=== PATIENT | male | born 1955 | race Hispanic/Latino ===

== ENCOUNTER 2021-11-28 17:36 | Inpatient (IN) | payer OTHER, SELFPAY ==
[2021-11-28] MEDS ORDERED: Boostrix 0.5 ML (Tdap) VIAL ONE (17:45)
[2021-11-28] MEDS ORDERED: Fentanyl 100 MCG/2 ML VIAL ONE ×3 (17:45→21:40)
[2021-11-28] MEDS ORDERED: Cyclobenzaprine 10 MG TAB PO PRN (17:51)
[2021-11-28] MEDS ORDERED: hydrALAZINE 20 MG/ML VIAL SLOW IVP PRN (17:51)
[2021-11-28] MEDS ORDERED: traMADol HCl 50 MG TAB PO PRN (17:51)
[2021-11-28] MEDS ORDERED: Promethazine HCl 25 MG/ML VIAL IM PRN ×2 (17:52→21:47)
[2021-11-28] MEDS ORDERED: Morphine 2 MG/ML VIAL SLOW IVP PRN (17:52)
[2021-11-28] MEDS ORDERED: Ondansetron PF 4 MG/2 ML Vial IVP PRN (17:52)
[2021-11-28 18:01] LABS: #Eosinphils 0.1 thou/uL (0.0-0.7); #Lymphocytes 2.4 thou/uL (1.20-3.40); #Monocytes 0.7 thou/uL (0.11-0.59); #Neutrophils 11.8 thou/uL (1.40-6.50); %Basophils 0.1 % (0.0-1.0); %Eosinophils 0.4 % (0.0-10.0); %Lymphocytes 15.9 % (21.0-51.0); %Monocytes 4.7 % (0.0-10.0); %Neutrophils 78.8 % (42.0-75.0); Mean Corpuscular HGB CONC 34.3 g/dL (32.0-36.0); Mean Corpuscular Hemoglobin 31.4 pg (27.0-31.0); Mean Corpuscular Volume 91.6 fL (78.0-98.0); Platelet Count 242 thou/uL (130-400); RBC Distribution Width 11.3 % (11.5-14.5); Red Blood Cell (RBC) Count 4.45 mill/uL (4.70-6.10)
[2021-11-28] MEDS ORDERED: CEFAZOLIN 2 GM VIAL ONE ×2 (18:04→19:49)
[2021-11-28] MEDS ORDERED: TETANUS, DIPHTHERIA TOX,ADULT (TDVAX) 0.5 ML VIAL IM ONE (18:06)
[2021-11-28 18:25] LABS: ALT (SGPT) 17 U/L (8-55); AST (SGOT) 21 U/L (5-34); Albumin 4.4 g/dL (3.4-4.8); Alkaline Phosphatase 72 U/L (40-110); Anion Gap 16 mmol/L (10-20); BUN (Urea Nitrogen) 21 mg/dL (8.4-25.7); Bilirubin, Total 0.4 mg/dL (0.2-1.2); Calc. Creatinine Clearance 0 mL/min (70-130); Calcium 9.4 mg/dL (7.8-10.44); Carbon Dioxide 21 mmol/L (23-31); Chloride 108 mmol/L (98-107); Estimated GFR 60; Globulin 2.6 g/dL (2.4-3.5); Glucose 171 mg/dL (80-115); Potassium 3.9 mmol/L (3.5-5.1); Sodium 141 mmol/L (136-145)
[2021-11-28 19:11] LABS: SARS-CoV-2 NAA Rapid Test Not Detected (NotDetected)
[2021-11-28] MEDS ORDERED: fentaNYL Citrate/PF 100 MCG/2 ML SYRINGE ONE (19:34)
[2021-11-28] MEDS ORDERED: Succinylcholine 200 MG/10 ml SYRINGE FS ONE (19:49)
[2021-11-28] MEDS ORDERED: Rocuronium Bromide 10 MG/ML (10ML VIAL) ONE (19:49)
[2021-11-28] MEDS ORDERED: Dexamethasone 20 MG/5 ML VIAL ONE (19:49)
[2021-11-28] MEDS ORDERED: Neostigmine Methylsulfate 3 MG/3 ML SYRINGE ONE (19:49)
[2021-11-28] MEDS ORDERED: Sodium Chloride 0.9% 100 ML ONE (19:49)
[2021-11-28] MEDS ORDERED: Phenylephrine 10 MG/ML VIAL ONE (19:49)
[2021-11-28] MEDS ORDERED: Ondansetron PF 4 MG/2 ML Vial ONE (19:49)
[2021-11-28] MEDS ORDERED: Lidocaine 1% PF 5 ML VIAL ONE (19:49)
[2021-11-28] MEDS ORDERED: ePHEDrine 50 MG/ML VIAL ONE (19:49)
[2021-11-28] MEDS ORDERED: Glycopyrrolate 0.2 MG/ML 5 ML SYRINGE ONE (19:49)
[2021-11-28] MEDS ORDERED: PROPOFOL 200 MG/20 ML VIAL ONE (19:49)
[2021-11-28] MEDS ORDERED: Silver Sulfadiazine 50 GM TUBE TOP SCH (21:00)
[2021-11-28] MEDS ORDERED: HYDROmorphone 2 MG/ML VIAL SLOW IVP PRN (21:47)
[2021-11-28] MEDS ORDERED: Ondansetron HCl/PF 4 MG/2 ML Vial IVP PRN (21:47)
[2021-11-28] MEDS ORDERED: Ketorolac Tromethamine 30 MG/ML VIAL IVP PRN (21:47)
[2021-11-28] MEDS ORDERED: Promethazine HCl 25 MG/ML VIAL IVPB PRN (21:47)
[2021-11-28] MEDS ORDERED: Ketorolac Tromethamine 30 MG/ML VIAL ONE (21:52)
[2021-11-28] MEDS ORDERED: ceFAZolin 2 GM/Dextrose 50 ML 2 GM in Premix Bag 1 BAG IVPB SCH (22:00)
[2021-11-28] MEDS ORDERED: HYDROmorphone 2 MG/ML VIAL ONE (22:13)
[2021-11-28] MEDS: Sodium Chloride 0.9% 1,000 ML IV SCH (23:53)
[2021-11-28] MEDS: Senokot S 8.6-50 MG TAB PO SCH (23:54)
[2021-11-28] MEDS: Gabapentin 300 MG CAP PO SCH (23:54)
[2021-11-28] MEDS: Famotidine 20 MG TAB PO SCH (23:54)
[2021-11-28] MEDS: traMADol HCl 50 MG TAB PO SCH (23:54)
[2021-11-29 00:01] VITALS: BMI 28.9
[2021-11-29] MEDS: Ketorolac Tromethamine 30 MG/ML VIAL IVP SCH ×5 (00:51→23:55)
[2021-11-29] MEDS: CEFAZOLIN 2 GM in Sodium Chloride 0.9% 100 ML IVPB SCH ×3 (00:52→18:33)
[2021-11-29] MEDS: Acetaminophen 500 MG TAB PO SCH ×5 (00:52→23:54)
[2021-11-29] MEDS: Sodium Chloride 0.9% 1,000 ML IV SCH ×4 (00:52→20:20)
[2021-11-29] MEDS: traMADol HCl 50 MG TAB PO SCH ×5 (00:52→23:54)
[2021-11-29 06:18] LABS: #Lymphocytes 0.8 thou/uL (1.20-3.40); #Monocytes 0.4 thou/uL (0.11-0.59); #Neutrophils 5.8 thou/uL (1.40-6.50); %Basophils 0.1 % (0.0-1.0); %Eosinophils 0.2 % (0.0-10.0); %Lymphocytes 11.2 % (21.0-51.0); %Monocytes 5.2 % (0.0-10.0); %Neutrophils 83.3 % (42.0-75.0); Hemoglobin 10.8 g/dL (14.0-18.0); Mean Corpuscular HGB CONC 33.7 g/dL (32.0-36.0); Mean Corpuscular Hemoglobin 31.6 pg (27.0-31.0); Mean Corpuscular Volume 93.7 fL (78.0-98.0); Mean Platelet Volume 7.3 fL (7.4-10.4); Platelet Count 209 thou/uL (130-400); RBC Distribution Width 11.4 % (11.5-14.5); Red Blood Cell (RBC) Count 3.43 mill/uL (4.70-6.10); White Blood Cell (WBC) Count 6.9 thou/uL (4.8-10.8)
[2021-11-29 06:35] LABS: Anion Gap 14 mmol/L (10-20); BUN (Urea Nitrogen) 21 mg/dL (8.4-25.7); CK (CPK) 1158 U/L (30-200); Calc. Creatinine Clearance 82 mL/min (70-130); Calcium 8.2 mg/dL (7.8-10.44); Carbon Dioxide 19 mmol/L (23-31); Chloride 110 mmol/L (98-107); Estimated GFR 85; Glucose 213 mg/dL (80-115); Phosphorus 3.1 mg/dL (2.3-4.7); Potassium 4.5 mmol/L (3.5-5.1); Sodium 138 mmol/L (136-145)
[2021-11-29] MEDS ORDERED: Enoxaparin Sodium 40 MG/0.4 ML SYRINGE SC SCH (09:00)
[2021-11-29] MEDS: Famotidine 20 MG TAB PO SCH ×2 (09:09→20:22)
[2021-11-29] MEDS: Gabapentin 300 MG CAP PO SCH ×3 (09:09→20:21)
[2021-11-29] MEDS: Senokot S 8.6-50 MG TAB PO SCH ×2 (09:10→20:22)
[2021-11-29] MEDS: Polyethylene Glycol 3350 17 GM Packet PO SCH (09:10)
[2021-11-29] MEDS ORDERED: Tamsulosin HCl 0.4 MG CAP PO SCH (13:00)
[2021-11-29] MEDS ORDERED: Bisacodyl 10 MG SUPP PR SCH (13:00)
[2021-11-30] MEDS: Sodium Chloride 0.9% 1,000 ML IV SCH (01:57)
[2021-11-30] MEDS: CEFAZOLIN 2 GM in Sodium Chloride 0.9% 100 ML IVPB SCH ×3 (02:49→18:27)
[2021-11-30] MEDS: Acetaminophen 500 MG TAB PO SCH ×3 (05:46→18:27)
[2021-11-30] MEDS: traMADol HCl 50 MG TAB PO SCH ×3 (05:46→18:27)
[2021-11-30 05:56] LABS: Hemoglobin A1c 5.5 % (4.0-6.0)
[2021-11-30 06:03] LABS: #Lymphocytes 1.2 thou/uL (1.20-3.40); #Monocytes 0.5 thou/uL (0.11-0.59); #Neutrophils 3.3 thou/uL (1.40-6.50); %Eosinophils 0.4 % (0.0-10.0); %Lymphocytes 23.9 % (21.0-51.0); %Monocytes 9.5 % (0.0-10.0); %Neutrophils 66.3 % (42.0-75.0); Hemoglobin 6.8 g/dL (14.0-18.0); Mean Corpuscular HGB CONC 33.7 g/dL (32.0-36.0); Mean Corpuscular Hemoglobin 31.8 pg (27.0-31.0); Mean Corpuscular Volume 94.3 fL (78.0-98.0); Mean Platelet Volume 7.3 fL (7.4-10.4); Platelet Count 130 thou/uL (130-400); RBC Distribution Width 11.2 % (11.5-14.5); Red Blood Cell (RBC) Count 2.14 mill/uL (4.70-6.10)
[2021-11-30 07:30] LABS: Anion Gap 11 mmol/L (10-20); BUN (Urea Nitrogen) 13 mg/dL (8.4-25.7); CK (CPK) 1336 U/L (30-200); Calc. Creatinine Clearance 109 mL/min (70-130); Calcium 7.7 mg/dL (7.8-10.44); Carbon Dioxide 22 mmol/L (23-31); Chloride 111 mmol/L (98-107); Estimated GFR 101; Glucose 140 mg/dL (80-115); Magnesium 2.1 mg/dL (1.6-2.6); Phosphorus 2.3 mg/dL (2.3-4.7); Potassium 4.3 mmol/L (3.5-5.1); Sodium 140 mmol/L (136-145)
[2021-11-30 09:13] LABS: Hemoglobin 7.2 g/dL (14.0-18.0)
[2021-11-30] MEDS: Gabapentin 300 MG CAP PO SCH ×3 (10:15→20:54)
[2021-11-30] MEDS: Tamsulosin HCl 0.4 MG CAP PO SCH (10:31)
[2021-11-30] MEDS: Famotidine 20 MG TAB PO SCH ×2 (10:31→20:55)
[2021-11-30] MEDS: Polyethylene Glycol 3350 17 GM Packet PO SCH (10:31)
[2021-11-30] MEDS: Senokot S 8.6-50 MG TAB PO SCH ×2 (10:31→21:08)
[2021-11-30] MEDS: Ascorbic Acid 500 mg Chewable Tablet PO SCH (20:55)
[2021-12-01] MEDS: Acetaminophen 500 MG TAB PO SCH ×5 (00:55→23:50)
[2021-12-01] MEDS: traMADol HCl 50 MG TAB PO SCH ×5 (00:55→23:51)
[2021-12-01 06:50] LABS: #Eosinphils 0.2 thou/uL (0.0-0.7); #Lymphocytes 1.9 thou/uL (1.20-3.40); #Monocytes 0.6 thou/uL (0.11-0.59); #Neutrophils 3.8 thou/uL (1.40-6.50); %Basophils 0.2 % (0.0-1.0); %Eosinophils 2.9 % (0.0-10.0); %Lymphocytes 29.6 % (21.0-51.0); %Monocytes 8.9 % (0.0-10.0); %Neutrophils 58.4 % (42.0-75.0); Hemoglobin 8.6 g/dL (14.0-18.0); Mean Corpuscular HGB CONC 33.1 g/dL (32.0-36.0); Mean Corpuscular Volume 90.6 fL (78.0-98.0); Mean Platelet Volume 7.4 fL (7.4-10.4); Platelet Count 169 thou/uL (130-400); RBC Distribution Width 14.8 % (11.5-14.5); Red Blood Cell (RBC) Count 2.86 mill/uL (4.70-6.10); White Blood Cell (WBC) Count 6.5 thou/uL (4.8-10.8)
[2021-12-01 07:15] LABS: Anion Gap 13 mmol/L (10-20); BUN (Urea Nitrogen) 9 mg/dL (8.4-25.7); CK (CPK) 1868 U/L (30-200); Calc. Creatinine Clearance 109 mL/min (70-130); Calcium 8.1 mg/dL (7.8-10.44); Carbon Dioxide 22 mmol/L (23-31); Chloride 107 mmol/L (98-107); Estimated GFR 101; Glucose 126 mg/dL (80-115); Magnesium 1.9 mg/dL (1.6-2.6); Phosphorus 2.2 mg/dL (2.3-4.7); Potassium 3.9 mmol/L (3.5-5.1); Sodium 138 mmol/L (136-145)
[2021-12-01] MEDS ORDERED: Ferrous Sulfate 325 MG TAB PO SCH (08:00)
[2021-12-01] MEDS ORDERED: Sodium Phosphate 30 MMOL in Sodium Chloride 0.9% 250 ML 250 ML IVPB SCH (09:00)
[2021-12-01] MEDS ORDERED: Enoxaparin Sodium 40 MG/0.4 ML SYRINGE SC SCH (09:15)
[2021-12-01] MEDS ORDERED: Sodium Bicarbonate 150 MEQ in Dextrose 5% in Water 850 ML IV SCH (09:15)
[2021-12-01] MEDS: Gabapentin 300 MG CAP PO SCH ×3 (10:41→21:14)
[2021-12-01] MEDS: Tamsulosin HCl 0.4 MG CAP PO SCH (10:43)
[2021-12-01] MEDS: Ascorbic Acid 500 mg Chewable Tablet PO SCH ×2 (10:43→21:14)
[2021-12-01] MEDS: Famotidine 20 MG TAB PO SCH ×2 (10:45→21:13)
[2021-12-01] MEDS: Ferrous Sulfate 325 MG TAB PO SCH ×2 (10:55→21:14)
[2021-12-01] MEDS: Senokot S 8.6-50 MG TAB PO SCH ×2 (11:06→21:13)
[2021-12-01] MEDS: Polyethylene Glycol 3350 17 GM Packet PO SCH (11:06)
[2021-12-01 17:17] LABS: Bacteria/HPF None Seen HPF (None Seen); Bilirubin Negative (Negative); Blood, Urine 2+ (Negative); Clarity Clear (Clear); Glucose, Urine (Dipstick) Normal (Negative); Ketone, Urine Negative (Negative); Leukocyte Negative Leu/uL (Negative); Nitrite Negative (Negative); Protein, Urine (Dipstick) Negative (Neg-Trace); Specific Gravity, Urine 1.013 (1.002-1.036); Squamous Epithelial None Seen HPF (0-3); Urobilinogen Normal mg/dL (Less than 2); WBC/HPF 0-3 HPF (0-3); pH, Urine 6.5 (5.0-9.0)
[2021-12-01 17:19] LABS: Urine Culture Reflex No No
[2021-12-02] MEDS: Acetaminophen 500 MG TAB PO SCH ×3 (05:44→20:19)
[2021-12-02] MEDS: traMADol HCl 50 MG TAB PO SCH ×3 (05:45→20:19)
[2021-12-02 06:12] LABS: #Eosinphils 0.1 thou/uL (0.0-0.7); #Lymphocytes 1.9 thou/uL (1.20-3.40); #Monocytes 0.6 thou/uL (0.11-0.59); #Neutrophils 3.1 thou/uL (1.40-6.50); %Basophils 0.3 % (0.0-1.0); %Eosinophils 1.8 % (0.0-10.0); %Lymphocytes 33.3 % (21.0-51.0); %Monocytes 10.9 % (0.0-10.0); %Neutrophils 53.7 % (42.0-75.0); Hemoglobin 7.9 g/dL (14.0-18.0); Mean Corpuscular HGB CONC 33.6 g/dL (32.0-36.0); Mean Corpuscular Hemoglobin 30.1 pg (27.0-31.0); Mean Corpuscular Volume 89.8 fL (78.0-98.0); Mean Platelet Volume 7.1 fL (7.4-10.4); Platelet Count 189 thou/uL (130-400); RBC Distribution Width 14.1 % (11.5-14.5); Red Blood Cell (RBC) Count 2.61 mill/uL (4.70-6.10); White Blood Cell (WBC) Count 5.7 thou/uL (4.8-10.8)
[2021-12-02 06:38] LABS: Anion Gap 12 mmol/L (10-20); BUN (Urea Nitrogen) 9 mg/dL (8.4-25.7); CK (CPK) 1167 U/L (30-200); Calc. Creatinine Clearance 115 mL/min (70-130); Carbon Dioxide 28 mmol/L (23-31); Chloride 103 mmol/L (98-107); Estimated GFR 103; Glucose 115 mg/dL (80-115); Phosphorus 3.9 mg/dL (2.3-4.7); Potassium 3.8 mmol/L (3.5-5.1); Sodium 139 mmol/L (136-145)
[2021-12-02] MEDS: Ferrous Sulfate 325 MG TAB PO SCH (08:51)
[2021-12-02] MEDS: Famotidine 20 MG TAB PO SCH (08:51)
[2021-12-02] MEDS: Gabapentin 300 MG CAP PO SCH ×2 (08:51→20:19)
[2021-12-02] MEDS: Ascorbic Acid 500 mg Chewable Tablet PO SCH (08:52)
[2021-12-02] MEDS: Polyethylene Glycol 3350 17 GM Packet PO SCH (08:53)
[2021-12-02] MEDS: Senokot S 8.6-50 MG TAB PO SCH (08:53)
[2021-12-02] MEDS: Tamsulosin HCl 0.4 MG CAP PO SCH (08:59)
[2021-12-02] MEDS ORDERED: Enoxaparin Sodium 40 MG/0.4 ML SYRINGE SC SCH (09:00)
[2021-12-02 14:53] VITALS: TEMP 98.2
[2021-12-02 17:54] VITALS: BP 181/84
== END 2021-12-02 18:50 | disposition home or self-care (01) | DRG 956 ==
LOC: ERS 17:36 → SDC/OP 20:03 → SURG B 20:04
PROVIDERS: ADMIT Specialist; ATTEND Surgery
PROC: 0QS906Z Reposition Left Femoral Shaft with Intramedullary Internal Fixation Device, Open Approach (ICD-10-PCS; principal; 2021-11-28)
PROC: 30233N1 Transfusion of Nonautologous Red Blood Cells into Peripheral Vein, Percutaneous Approach (ICD-10-PCS; 2021-11-30)
DX: S77.12XA Crushing injury of left thigh, initial encounter (principal); T79.6XXA Traumatic ischemia of muscle, initial encounter; S72.352B Displaced comminuted fracture of shaft of left femur, initial encounter for open fracture type I or II; N17.9 Acute kidney failure, unspecified; D62 Acute posthemorrhagic anemia; R33.9 Retention of urine, unspecified; T23.052A Burn of unspecified degree of left palm, initial encounter; S82.892A Other fracture of left lower leg, initial encounter for closed fracture; W01.198A Fall on same level from slipping, tripping and stumbling with subsequent striking against other object, initial encounter; T25.022A Burn of unspecified degree of left foot, initial encounter; T21.01XA Burn of unspecified degree of chest wall, initial encounter; T24.012A Burn of unspecified degree of left thigh, initial encounter; Z20.822 Contact with and (suspected) exposure to COVID-19; Y93.89 Activity, other specified; Y92.69 Other specified industrial and construction area as the place of occurrence of the external cause; Y99.0 Civilian activity done for income or pay
CPT/HCPCS: 36415; 36430; 71045; 76000; 80048; 80053; 81001; 82550; 83036; 83735; 84100; 85025; 86850; 86900; 86901; 90715; 93005; 97139; C1713; G0390; J0690; J1100; J1170; J1650; J1885; J2270; J2370; J2405; J2704; J3010; J3490; J7050; P9016; U0002

== ENCOUNTER 2022-01-09 11:05 | Emergency (ER) | payer OTHER, SELFPAY ==
[2022-01-09 14:19] LABS: Bacteria/HPF 4+ HPF (None Seen); Bilirubin Negative (Negative); Blood, Urine 3+ (Negative); Clarity Extra Turbid (Clear); Glucose, Urine (Dipstick) Normal (Negative); Ketone, Urine Negative (Negative); Leukocyte 500 Leu/uL (Negative); Nitrite 2+ (Negative); Protein, Urine (Dipstick) 300 mg/dL (Neg-Trace); RBC/HPF Greater than 50 HPF (0-3); Specific Gravity, Urine 1.022 (1.002-1.036); Squamous Epithelial 0-3 HPF (0-3); Urobilinogen Normal mg/dL (Less than 2); WBC/HPF Greater than 50 HPF (0-3); pH, Urine 6.5 (5.0-9.0)
== END 2022-01-09 16:20 | disposition home or self-care (01) ==
LOC: ERS 11:05
DX: T83.511A Infection and inflammatory reaction due to indwelling urethral catheter, initial encounter (principal); N39.0 Urinary tract infection, site not specified
CPT/HCPCS: 81003; 81015; 87077; 87086; 87186; 99283

== ENCOUNTER 2022-05-22 13:50 | Outpatient (CLI) | payer OTHER | END 2022-05-22 13:51 | disposition home or self-care (01) | LOC: BICCT 13:50 | PROVIDERS: ATTEND Physician Assistant Surgical | DX: S72.352A Displaced comminuted fracture of shaft of left femur, initial encounter for closed fracture (principal) ==

== ENCOUNTER 2022-07-14 06:00 | Day surgery (SDC) | payer OTHER ==
[2022-07-13 12:44] VITALS: BMI 27.4
[2022-07-14] MEDS ORDERED: fentaNYL PF 100 MCG/2 ML SYRINGE ONE (07:04)
[2022-07-14] MEDS ORDERED: Promethazine HCl 25 MG/ML VIAL IM PRN (07:26)
[2022-07-14] MEDS ORDERED: Meperidine HCl/PF 25 MG/ML VIAL SLOW IVP PRN (07:26)
[2022-07-14] MEDS ORDERED: HYDROmorphone 2 MG/ML VIAL SLOW IVP PRN (07:26)
[2022-07-14] MEDS ORDERED: CEFAZOLIN 2 GM VIAL ONE (07:31)
[2022-07-14] MEDS ORDERED: Sodium Chloride 0.9% 100 ML ONE (07:31)
[2022-07-14] MEDS ORDERED: Dexamethasone 20 MG/5 ML VIAL ONE (07:50)
[2022-07-14] MEDS ORDERED: Glycopyrrolate 0.2 MG/ML 5 ML SYRINGE ONE (07:50)
[2022-07-14] MEDS ORDERED: Ketorolac Tromethamine 30 MG/ML VIAL ONE (07:50)
[2022-07-14] MEDS ORDERED: Lidocaine 1% PF 5 ML VIAL ONE (07:50)
[2022-07-14] MEDS ORDERED: Ondansetron PF 4 MG/2 ML Vial ONE (07:50)
[2022-07-14] MEDS ORDERED: PROPOFOL 200 MG/20 ML VIAL ONE (07:50)
[2022-07-14] MEDS ORDERED: Rocuronium Bromide 10 MG/ML (10ML VIAL) ONE (07:50)
[2022-07-14] MEDS ORDERED: NEOSTIGMINE 3 MG/3 ML SYR 3 MG/3 ML SYRINGE ONE (07:50)
[2022-07-14] MEDS ORDERED: FENTANYL 50 MCG/ML 1 ML VIAL ONE (09:26)
[2022-07-14] MEDS ORDERED: HYDROmorphone 0.5 MG/0.5 ML SYRINGE ONE ×2 (09:39→09:53)
[2022-07-14] MEDS ORDERED: HYDROcodone/Acetaminophen 5/325 mg Tablet ONE (10:51)
== END 2022-07-14 12:50 | disposition home or self-care (01) ==
LOC: SDC 06:00
PROVIDERS: ATTEND Orthopaedic Surgery
PROC: 0QS906Z Reposition Left Femoral Shaft with Intramedullary Internal Fixation Device, Open Approach (ICD-10-PCS; principal; 2022-07-14)
DX: S72.34 Spiral fracture of shaft of femur (principal); N40.0 Benign prostatic hyperplasia without lower urinary tract symptoms; Z79.899 Other long term (current) drug therapy; W22.8XXD Striking against or struck by other objects, subsequent encounter
CPT/HCPCS: C1713; J1100; J1170; J1885; J2405; J2704; J3010; J3490